=== PATIENT | female | born 1985 | race Caucasian/White ===

== ENCOUNTER 2017-05-04 12:52 | Emergency (ER) | payer BC ==
[~2017-05-04] VITALS: Ht 165.1 cm; Wt 100.0 kg
[~2017-05-04 12:52] MED LIST: NO HOME MEDS
[2017-05-04] MEDS ORDERED: GABAPENTIN100 MG PO (13:02)
[2017-05-04 15:37] VITALS: BP 116/58
== END 2017-05-04 15:46 | disposition home or self-care (01) | DRG 880 ==
LOC: ED 12:52
DX: F41.9 Anxiety disorder, unspecified (principal); M25.512 Pain in left shoulder; F31.9 Bipolar disorder, unspecified; G50.0 Trigeminal neuralgia; F17.210 Nicotine dependence, cigarettes, uncomplicated